=== PATIENT | female | born 1995 | race Hispanic/Latino ===

== ENCOUNTER 2017-05-07 01:35 | Inpatient (IN) | payer MEDICAID ==
[2017-05-07] VITALS (32 sets, daily range): BP systolic 133–166; BP diastolic 62–99
[~2017-05-07] VITALS: Ht 149.9 cm; Wt 86.2 kg
[2017-05-07] MEDS ORDERED: TETANUS/DIPHTHERIA TOXOID [ADULT] 0.5 ML VIAL IM ONE (02:03)
[2017-05-07 02:07] LABS: BASOPHILS % (AUTO) 0.1 % (0.0-5.0); EOSINOPHILS % (AUTO) 0.2 % (0.0-8.0); HEMATOCRIT 38.5 % (36-48); LYMPHOCYTES % (AUTO) 18.4 % (21.0-51.0); MEAN CORPUSCULAR HEMOGLOBIN 27.5 pg (27.0-33.0); MEAN CORPUSCULAR HGB CONC 33.4 g/dL (32.0-36.0); MEAN CORPUSCULAR VOLUME 82.3 fL (80-100); MONOCYTES % (AUTO) 4.5 % (3.0-13.0); NEUTROPHILS % (AUTO) 76.8 % (40.0-77.0); PLATELET COUNT (AUTO) 437 K/uL (130-400); RED BLOOD CELL COUNT(AUTO) 4.68 MIL/uL (4.00-5.50); RED CELL DISTRIBUTION WIDTH 15.4 % (11.0-15.5); WHITE BLOOD COUNT (AUTO) 19.2 K/uL (4.8-10.8)
[2017-05-07 02:16] LABS: INR 1.01 (0.85-1.15); PARTIAL THROMBOPLASTIN TIME 25.8 SEC (26.3-35.5); PROTHROMBIN TIME 10.6 SEC (9.6-11.6)
[2017-05-07 02:19] LABS: CREATININE 0.6 mg/dL (0.5-1.5); POTASSIUM 3.1 mmol/L (3.5-5.1)
[2017-05-07] MEDS ORDERED: ONDANSETRON HCL 4 MG/2 ML VIAL ONE ×3 (02:19→11:24)
[2017-05-07] MEDS ORDERED: HYDROMORPHONE HCL 0.5 MG/0.5 ML ML ONE ×3 (02:20→06:49)
[2017-05-07 02:35] LABS: ALBUMIN 3.9 g/dL (3.5-5.0); BILIRUBIN,TOTAL 0.4 mg/dL (0.2-1.0); CREATINE KINASE MB 0.9 ng/mL (0.5-3.6)
[2017-05-07] MEDS ORDERED: LIDOCAINE HCL 1% 20 ML VIAL ONE (03:19)
[2017-05-07] MEDS ORDERED: IOPAMIDOL-370 100 ML VIAL IV ONE (04:07)
[2017-05-07 04:25] LABS: APPEARANCE,URINE Clear (CLEAR); BILIRUBIN,URINE Negative (NEGATIVE); COLOR,URINE Yellow (YELLOW); GLUCOSE, URINE (UA) Negative (NEGATIVE); KETONES,URINE Negative (NEGATIVE); LEUKOCYTE ESTERASE ,URINE Trace (NEGATIVE); NITRATE,URINE Negative (NEGATIVE); OCCULT BLOOD,URINE Moderate (NEGATIVE); PH,URINE 6.5 (5.0-8.0); PROTEIN,URINE Negative (NEGATIVE); UROBILINOGEN,URINE 0.2 mg/dL (0.2-1.0)
[2017-05-07 04:30] LABS: BACTERIA,URINE Rare /HPF (None Seen); MUCUS,URINE Few LPF (None Seen); SQUAMOUS EPITHELIAL CELL,UR Moderate /LPF (0-2); WBC,URINE 0-1 /HPF (0-1)
[2017-05-07 04:31] LABS: AMPHET/METH SCREEN,URINE NEGATIVE (NEGATIVE); BARBITURATE SCREEN, URINE NEGATIVE (NEGATIVE); BENZODIAZEPINES SCREEN,URINE NEGATIVE (NEGATIVE); CANNABINOID SCREEN,URINE POSITIVE (NEGATIVE); COCAINE SCREEN,URINE NEGATIVE (NEGATIVE); OPIATE SCREEN,URINE NEGATIVE (NEGATIVE); PHENCYCLIDINE SCREEN,URINE NEGATIVE (NEGATIVE)
[2017-05-07] MEDS ORDERED: ONDANSETRON HCL 4 MG/2 ML VIAL IVP PRN (07:00)
[2017-05-07] MEDS: SODIUM CHLORIDE 0.9% 1000ML 1,000 ML IV SCH ×4 (07:00→23:12)
[2017-05-07] MEDS ORDERED: CEFAZOLIN SODIUM 1 GM VIAL IVP SCH (07:00)
[2017-05-07] MEDS ORDERED: PROPOFOL 10 MG/ML 20ML VIAL IV ONE (08:30)
[2017-05-07] MEDS ORDERED: DEXAMETHASONE SOD PHOSPHATE 10MG/ML 1ML VIAL ONE ×2 (08:30→11:24)
[2017-05-07] MEDS ORDERED: LIDOCAINE PF 2% 5ML ABBOJECT ONE (08:30)
[2017-05-07] MEDS ORDERED: MIDAZOLAM HCL 1 MG/ML 2ML VIAL ONE ×2 (08:30→08:43)
[2017-05-07] MEDS ORDERED: SUCCINYLCHOLINE 200MG/10ML SYR ONE ×2 (08:30→11:23)
[2017-05-07] MEDS ORDERED: NEOSTIGMINE 5MG/5ML SYR IV ONE ×2 (08:30→11:24)
[2017-05-07] MEDS ORDERED: GLYCOPYRROLATE 0.2 MG/ML 5 ML VIAL ONE ×2 (08:30→11:24)
[2017-05-07] MEDS ORDERED: FENTANYL CITRATE PF 50 MCG/1 ML 2ML VIAL ONE ×7 (08:31→13:31)
[2017-05-07] MEDS ORDERED: ROPIVACAINE 0.5% 5MG/ML 30ML IJ ONE (08:37)
[2017-05-07] MEDS: PANTOPRAZOLE SODIUM 40 MG TABLET.DR PO SCH (09:00)
[2017-05-07] MEDS ORDERED: CEFAZOLIN SODIUM 1 GM VIAL ONE (09:03)
[2017-05-07] MEDS ORDERED: ROCURONIUM BROMIDE 10MG/1ML 5ML VL ONE ×2 (11:23)
[2017-05-07] MEDS ORDERED: ESMOLOL HCL 10 MG/ML 10 ML VIAL ONE (11:23)
[2017-05-07] MEDS ORDERED: SUB TO ALBUTEROL 2.5MG/3ML NEBULES PER P&T IH ONE (11:24)
[2017-05-07] MEDS ORDERED: LIDOCAINE HCL 4% LTA SOL 4 ML VIAL ONE (11:24)
[2017-05-07] MEDS ORDERED: PHENYLEPHRINE HCL 10 MG/ML 1ML VIAL IV ONE ×2 (11:25→17:33)
[2017-05-07] MEDS ORDERED: CALCIUM CARBONATE 500 MG TABLET PO PRN (13:15)
[2017-05-07] MEDS ORDERED: LIDOCAINE HCL-MPF 1% 2ML VIAL IVP PRN (13:15)
[2017-05-07] MEDS ORDERED: POTASSIUM CHLORIDE 10% ELIXIR 20 MEQ/15 ML UDCUP PO PRN (13:15)
[2017-05-07] MEDS ORDERED: DIPHENHYDRAMINE HCL 25 MG CAPSULE PO PRN (13:15)
[2017-05-07] MEDS ORDERED: DiphenhydrAMINE HCL 50 MG/ML VIAL IVP PRN (13:15)
[2017-05-07] MEDS ORDERED: HYDROCODONE/ACETAMINOPHEN 5/325 MG TAB PO PRN (13:15)
[2017-05-07] MEDS ORDERED: POTASSIUM CHLORIDE 20MEQ/100ML 100 ML IV PRN (13:15)
[2017-05-07] MEDS ORDERED: TRAMADOL HCL 50 MG TABLET PO PRN (13:15)
[2017-05-07] MEDS ORDERED: FERROUS FUMARATE 324 MG TABLET PO PRN (13:15)
[2017-05-07] MEDS ORDERED: MEPERIDINE-PF 50 MG/ML SYG ONE (13:42)
[2017-05-07] MEDS ORDERED: LABETALOL HCL 5 MG/ML 20ML VIAL IV ONE (14:19)
[2017-05-07] MEDS: CEFAZOLIN SODIUM 1 GM VIAL IVP SCH (18:06)
[2017-05-07] MEDS ORDERED: CEFAZOLIN 2GM / 50 ML 50 ML IV SCH (18:15)
[2017-05-07] MEDS ORDERED: FLU VACC QS2017-18 36MOS UP/PF 60 MCG/0.5 ML ML IM SCH (19:30)
[2017-05-07] MEDS: FAMOTIDINE 20MG TAB 20 MG TAB PO SCH (21:06)
[2017-05-08] VITALS (9 sets, daily range): BP systolic 121–187; BP diastolic 65–128
[2017-05-08] MEDS: CEFAZOLIN SODIUM 1 GM VIAL IVP SCH (01:59)
[2017-05-08] MEDS: HYDROMORPHONE HCL 0.5 MG/0.5 ML ML IVP PRN ×4 (03:19→18:34)
[2017-05-08 04:45] LABS: HEMATOCRIT 28.7 % (36-48); MEAN CORPUSCULAR HEMOGLOBIN 28.3 pg (27.0-33.0); MEAN CORPUSCULAR VOLUME 83.1 fL (80-100); PLATELET COUNT (AUTO) 292 K/uL (130-400); RED BLOOD CELL COUNT(AUTO) 3.45 MIL/uL (4.00-5.50); RED CELL DISTRIBUTION WIDTH 15.4 % (11.0-15.5); WHITE BLOOD COUNT (AUTO) 8.4 K/uL (4.8-10.8)
[2017-05-08] MEDS: POTASSIUM CHLORIDE 20 MEQ ERTAB PO PRN ×2 (06:53→18:12)
[2017-05-08] MEDS: PANTOPRAZOLE SODIUM 40 MG TABLET.DR PO SCH (08:19)
[2017-05-08] MEDS: FAMOTIDINE 20MG TAB 20 MG TAB PO SCH ×2 (08:19→21:06)
[2017-05-08] MEDS: POLYETHYLENE GLYCOL 3350 17 GM POWD.PACK PO SCH (08:19)
[2017-05-08] MEDS: SODIUM CHLORIDE 0.9% 1000ML 1,000 ML IV SCH ×2 (09:12→09:40)
[2017-05-08] MEDS: PSYLLIUM SEED 1 EACH PACKET PO SCH (12:40)
[2017-05-08] MEDS: ENOXAPARIN SODIUM 30 MG/0.3 ML SQ SCH ×2 (16:31→21:13)
[2017-05-08] MEDS ORDERED: MORPHINE SULFATE 4 MG/1ML SYG IV PRN (19:00)
[2017-05-08] MEDS ORDERED: HYDROCODONE/ACETAMINOPHEN 7.5/325 MG TAB PO SCH (19:00)
[2017-05-08] MEDS: TRAMADOL HCL 50 MG TABLET PO SCH (21:11)
[2017-05-09 00:17] VITALS: BP 104/64
[2017-05-09] MEDS ORDERED: HYDROCODONE/ACETAMINOPHEN 7.5/325 MG TAB PO SCH (03:00)
[2017-05-09 04:41] VITALS: BP 111/54
[2017-05-09 05:13] LABS: HEMATOCRIT 25.3 % (36-48); MEAN CORPUSCULAR HEMOGLOBIN 29.4 pg (27.0-33.0); MEAN CORPUSCULAR HGB CONC 35.5 g/dL (32.0-36.0); MEAN CORPUSCULAR VOLUME 82.7 fL (80-100); PLATELET COUNT (AUTO) 272 K/uL (130-400); RED BLOOD CELL COUNT(AUTO) 3.06 MIL/uL (4.00-5.50); RED CELL DISTRIBUTION WIDTH 15.2 % (11.0-15.5); WHITE BLOOD COUNT (AUTO) 9.3 K/uL (4.8-10.8)
[2017-05-09] MEDS: TRAMADOL HCL 50 MG TABLET PO SCH ×3 (06:42→17:54)
[2017-05-09 08:14] VITALS: BP 116/62
[2017-05-09] MEDS: PANTOPRAZOLE SODIUM 40 MG TABLET.DR PO SCH (08:39)
[2017-05-09] MEDS: POLYETHYLENE GLYCOL 3350 17 GM POWD.PACK PO SCH (08:39)
[2017-05-09] MEDS: FAMOTIDINE 20MG TAB 20 MG TAB PO SCH ×2 (08:39→21:59)
[2017-05-09] MEDS: ENOXAPARIN SODIUM 30 MG/0.3 ML SQ SCH ×2 (08:40→21:00)
[2017-05-09] MEDS: HYDROCODONE/ACETAMINOPHEN 7.5/325 MG TAB PO SCH ×2 (11:15→17:55)
[2017-05-09] MEDS: PSYLLIUM SEED 1 EACH PACKET PO SCH (11:16)
[2017-05-09 12:01] VITALS: BP 129/83
[2017-05-09] MEDS ORDERED: BISACODYL 5 MG TABLET.DR PO PRN (13:15)
[2017-05-09 17:02] VITALS: BP 119/69
[2017-05-09 20:17] VITALS: BP 121/74
[2017-05-10] VITALS (22 sets, daily range): BP systolic 113–155; BP diastolic 69–101
[2017-05-10] MEDS: HYDROCODONE/ACETAMINOPHEN 7.5/325 MG TAB PO SCH ×4 (00:32→23:28)
[2017-05-10] MEDS: TRAMADOL HCL 50 MG TABLET PO SCH ×4 (00:32→23:27)
[2017-05-10 06:26] LABS: HEMATOCRIT 30.2 % (36-48); MEAN CORPUSCULAR HEMOGLOBIN 27.9 pg (27.0-33.0); MEAN CORPUSCULAR HGB CONC 32.8 g/dL (32.0-36.0); PLATELET COUNT (AUTO) 247 K/uL (130-400); RED BLOOD CELL COUNT(AUTO) 3.55 MIL/uL (4.00-5.50); RED CELL DISTRIBUTION WIDTH 15.1 % (11.0-15.5); WHITE BLOOD COUNT (AUTO) 10.8 K/uL (4.8-10.8)
[2017-05-10] MEDS ORDERED: LIDOCAINE PF 2% 5ML ABBOJECT ONE (07:07)
[2017-05-10] MEDS ORDERED: ONDANSETRON HCL 4 MG/2 ML VIAL ONE ×2 (07:07→09:32)
[2017-05-10] MEDS ORDERED: GLYCOPYRROLATE 0.2 MG/ML 5 ML VIAL ONE (07:07)
[2017-05-10] MEDS ORDERED: DEXAMETHASONE SOD PHOSPHATE 10MG/ML 1ML VIAL ONE ×2 (07:07→09:32)
[2017-05-10] MEDS ORDERED: SUCCINYLCHOLINE 200MG/10ML SYR ONE ×2 (07:07→09:32)
[2017-05-10] MEDS ORDERED: FENTANYL CITRATE PF 50 MCG/1 ML 2ML VIAL ONE ×7 (07:08→12:21)
[2017-05-10] MEDS ORDERED: PROPOFOL 10 MG/ML 20ML VIAL IV ONE ×2 (07:08→12:05)
[2017-05-10] MEDS ORDERED: MIDAZOLAM HCL 1 MG/ML 2ML VIAL ONE (07:09)
[2017-05-10] MEDS ORDERED: LACTATED RINGERS 1000ML 1,000 ML IV ONE (07:16)
[2017-05-10] MEDS ORDERED: CEFAZOLIN SODIUM 1 GM VIAL ONE ×2 (07:16→23:24)
[2017-05-10] MEDS: POLYETHYLENE GLYCOL 3350 17 GM POWD.PACK PO SCH (09:00)
[2017-05-10] MEDS: PANTOPRAZOLE SODIUM 40 MG TABLET.DR PO SCH (09:00)
[2017-05-10] MEDS: ENOXAPARIN SODIUM 30 MG/0.3 ML SQ SCH ×2 (09:00→19:26)
[2017-05-10] MEDS: FAMOTIDINE 20MG TAB 20 MG TAB PO SCH ×2 (09:00→21:10)
[2017-05-10] MEDS ORDERED: ROCURONIUM BROMIDE 10MG/1ML 5ML VL ONE ×3 (09:32)
[2017-05-10] MEDS ORDERED: PHENYLEPHRINE HCL 10 MG/ML 1ML VIAL IV ONE (09:32)
[2017-05-10] MEDS ORDERED: ESMOLOL HCL 10 MG/ML 10 ML VIAL ONE (11:23)
[2017-05-10] MEDS: PSYLLIUM SEED 1 EACH PACKET PO SCH (12:00)
[2017-05-10] MEDS ORDERED: MEPERIDINE-PF 50 MG/ML SYG ONE ×2 (12:30→12:41)
[2017-05-10] MEDS ORDERED: BISACODYL 10 MG SUPP.RECT RC PRN (13:15)
[2017-05-10] MEDS: CEFAZOLIN SODIUM 1 GM VIAL IVP SCH ×2 (18:01→23:28)
[2017-05-11 00:19] VITALS: BP 137/79
[2017-05-11 04:00] VITALS: BP 120/69
[2017-05-11] MEDS: TRAMADOL HCL 50 MG TABLET PO SCH ×4 (05:25→23:34)
[2017-05-11] MEDS: HYDROCODONE/ACETAMINOPHEN 7.5/325 MG TAB PO SCH ×4 (05:25→23:34)
[2017-05-11 08:36] VITALS: BP 137/84
[2017-05-11] MEDS: POLYETHYLENE GLYCOL 3350 17 GM POWD.PACK PO SCH (08:50)
[2017-05-11] MEDS: PANTOPRAZOLE SODIUM 40 MG TABLET.DR PO SCH (08:50)
[2017-05-11] MEDS: ENOXAPARIN SODIUM 30 MG/0.3 ML SQ SCH ×2 (08:50→19:51)
[2017-05-11] MEDS: PSYLLIUM SEED 1 EACH PACKET PO SCH (11:49)
[2017-05-11 11:53] VITALS: BP 138/80
[2017-05-11 16:26] VITALS: BP 136/73
[2017-05-11 19:41] VITALS: BP 133/63
[2017-05-12] VITALS (7 sets, daily range): BP systolic 116–139; BP diastolic 62–81
[2017-05-12] MEDS: TRAMADOL HCL 50 MG TABLET PO SCH ×3 (05:34→20:50)
[2017-05-12] MEDS: HYDROCODONE/ACETAMINOPHEN 7.5/325 MG TAB PO SCH ×3 (05:34→20:50)
[2017-05-12] MEDS: PANTOPRAZOLE SODIUM 40 MG TABLET.DR PO SCH (09:20)
[2017-05-12] MEDS: POLYETHYLENE GLYCOL 3350 17 GM POWD.PACK PO SCH (09:20)
[2017-05-12] MEDS: ENOXAPARIN SODIUM 30 MG/0.3 ML SQ SCH ×2 (09:29→20:49)
[2017-05-12] MEDS: PSYLLIUM SEED 1 EACH PACKET PO SCH (11:17)
[2017-05-13 04:14] VITALS: BP 132/75
[2017-05-13] MEDS: HYDROCODONE/ACETAMINOPHEN 7.5/325 MG TAB PO SCH ×3 (05:24→11:51)
[2017-05-13] MEDS: TRAMADOL HCL 50 MG TABLET PO SCH ×3 (05:24→11:50)
[2017-05-13 07:34] VITALS: BP 123/73
[2017-05-13] MEDS: POLYETHYLENE GLYCOL 3350 17 GM POWD.PACK PO SCH (08:46)
[2017-05-13] MEDS: PANTOPRAZOLE SODIUM 40 MG TABLET.DR PO SCH (08:46)
[2017-05-13] MEDS: ENOXAPARIN SODIUM 30 MG/0.3 ML SQ SCH (08:47)
[2017-05-13 11:01] VITALS: BP 124/77
[2017-05-13] MEDS: PSYLLIUM SEED 1 EACH PACKET PO SCH (11:50)
[2017-05-13 15:20] VITALS: BP 128/76
== END 2017-05-13 17:05 | disposition home health service (06) | DRG 308 ==
LOC: EDH 01:35 → EDHIP 01:36 → OBSVTOIN 01:36 → 4AH 14:40
PROVIDERS: ADMIT Orthopaedic Surgery; ATTEND Orthopaedic Surgery
PROC: 0H9LXZZ Drainage of Left Lower Leg Skin, External Approach (ICD-10-PCS; 2017-05-07)
PROC: 3E0234Z Introduction of Serum, Toxoid and Vaccine into Muscle, Percutaneous Approach (ICD-10-PCS; principal; 2017-05-07 09:31)
PROC: 0QS904Z Reposition Left Femoral Shaft with Internal Fixation Device, Open Approach (ICD-10-PCS; 2017-05-07 09:31)
DX: S72.352A Displaced comminuted fracture of shaft of left femur, initial encounter for closed fracture (principal); F17.210 Nicotine dependence, cigarettes, uncomplicated; V43.62XA Car passenger injured in collision with other type car in traffic accident, initial encounter; F41.9 Anxiety disorder, unspecified; F31.9 Bipolar disorder, unspecified; S42.401A Unspecified fracture of lower end of right humerus, initial encounter for closed fracture; Y92.488 Other paved roadways as the place of occurrence of the external cause; Y93.89 Activity, other specified; Y99.8 Other external cause status; Z23 Encounter for immunization
CPT/HCPCS: 36415; 70460; 71260; 72126; 73060; 73070; 73552; 74177; 76000; 80053; 80305; 81001; 82550; 82553; 83690; 84484; 84703; 85025; 85027; 85610; 85730; 86850; 86900; 86901; 86922; 90714; 93005; 97039; 99291; A4218; A4565; G0390; G0480; J0330; J0690; J1100; J1170; J1650; J2001; J2175; J2250; J2270; J2370; J2405; J2704; J2710; J2795; J3010; J3490; J7030; J7120; Q9967

== ENCOUNTER 2017-05-29 09:15 | Emergency (ER) | payer MEDICAID | END 2017-05-29 10:32 | disposition home or self-care (01) | LOC: EDH 09:15 | DX: T81.31XA Disruption of external operation (surgical) wound, not elsewhere classified, initial encounter (principal); Y83.8 Other surgical procedures as the cause of abnormal reaction of the patient, or of later complication, without mention of misadventure at the time of the procedure; Y92.89 Other specified places as the place of occurrence of the external cause | CPT/HCPCS: 99281 ==

== ENCOUNTER 2018-09-23 19:04 | Emergency (ER) | payer MEDICAID | END 2018-09-23 20:51 | disposition home or self-care (01) | LOC: EDH 19:04 | DX: M62.838 Other muscle spasm (principal); F41.9 Anxiety disorder, unspecified; F31.9 Bipolar disorder, unspecified ==